=== PATIENT | male | born 1985 | race Caucasian/White ===

== ENCOUNTER 2016-09-13 20:07 | Emergency (ER) | payer MEDICAID ==
[~2016-09-13] VITALS: Ht 172.7 cm; Wt 59.0 kg
[2016-09-13 21:01] LABS: ALBUMIN 4.6 g/dL (3.4-5.0); BASOPHILS # (AUTO) 0.1 K/uL (0.0-8.0); BASOPHILS % (AUTO) 0.8 % (0.0-2.0); BILIRUBIN,DIRECT 0.1 mg/dL (0.0-0.2); BILIRUBIN,TOTAL 0.7 mg/dL (0.2-1.0); CALCIUM 9.6 mg/dL (8.5-10.1); CREATININE 0.9 mg/dL (0.6-1.3); EOSINOPHILS # (AUTO) 0.2 K/uL (0.0-0.7); EOSINOPHILS % (AUTO) 2.5 % (0.0-7.0); HEMOGLOBIN 17.1 g/dL (12.5-16.3); LYMPHOCYTES # (AUTO) 2.5 K/uL (20.0-40.0); LYMPHOCYTES % (AUTO) 30.3 % (20.5-51.5); MEAN CORPUSCULAR HEMOGLOBIN 32.6 uug (23.8-33.4); MEAN CORPUSCULAR HGB CONC 35 g/dL (32.5-36.3); MEAN CORPUSCULAR VOLUME 93.4 fL (73.0-96.2); MONOCYTES # (AUTO) 0.8 K/uL (2.0-10.0); MONOCYTES % (AUTO) 9.6 % (0.0-11.0); NEUTROPHILS # (AUTO) 4.5 K/uL (1.8-8.9); NEUTROPHILS % (AUTO) 56.8 % (38.5-71.5); PLATELET COUNT (AUTO) 147 K/uL (152-348); POTASSIUM 3.7 mmol/L (3.5-5.1); RED BLOOD CELL COUNT(AUTO) 5.25 MIL/uL (4.06-5.63); RED CELL DISTRIBUTION WIDTH 11.7 % (12.1-16.2); TOTAL PROTEIN, SERUM 8.5 g/dL (6.4-8.2); WHITE BLOOD COUNT (AUTO) 8.1 K/uL (3.6-10.2)
[2016-09-13] MEDS ORDERED: NORMAL SALINE FLUSH 10 ML DISP.SYRIN ONE (21:21)
[2016-09-13] MEDS ORDERED: IV NORMAL SALINE 250 ML IV ONE (21:21)
[2016-09-13] MEDS ORDERED: IOHEXOL 300MG/ML 100 ML INFUS..BTL ONE (21:21)
[2016-09-13 21:26] LABS: *BILIRUBIN,URIN NEGATIVE (NEGATIVE); *BLOOD, URINE NEGATIVE (NEGATIVE); *COLOR,URINE YELLOW (YELLOW); *KETONES,URINE NEGATIVE (NEGATIVE); *PROTEIN,URINE NEGATIVE (NEGATIVE); *UROBILINOGEN,URINE 0.2 E.U./dl (NORMAL); LEUKOCYTE ESTERASE ,URINE NEGATIVE (NEGATIVE); NITRITE, URINE NEGATIVE (NEGATIVE); PH,URINE 7.5 (5.0-8.0); UGLUCOSE NEGATIVE (NEGATIVE)
[2016-09-13 21:36] LABS: *CLARITY,URINE HAZY (CLEAR)
[2016-09-13 21:37] LABS: MUCUS,URINE MODERATE /LPF (0-FEW); URINE AMORPHOUS PHOSPHATES MODERATE /HPF; WBC,URINE 0-3 /HPF (0-3)
--- NOTE | 2016-09-13 22:38 | NUR ---
Patient discharged to home in stable conditon. Written and verbal after care instructions given. Patient verbalizes understanding of instructions.
[2016-09-13 22:40] VITALS: BP 112/70
== END 2016-09-13 22:38 | disposition home or self-care (01) ==
LOC: ER 20:07
DX: R10.31 Right lower quadrant pain (principal); F10.20 Alcohol dependence, uncomplicated; F17.200 Nicotine dependence, unspecified, uncomplicated; F19.10 Other psychoactive substance abuse, uncomplicated
CPT/HCPCS: 36415; 74177; 80048; 80076; 81001; 83690; 85025; 99285; A4663; J3490; J7050; Q9967